=== PATIENT | female | born 1985 | race Asian ===

== ENCOUNTER 2023-10-06 13:21 | Inpatient (IN) | payer MEDICAID ==
[~2023-10-06] VITALS: Ht 175.3 cm; Wt 58.1 kg
[2023-10-06 13:43] VITALS: BP_SYST 123; PULSE 98; RESP 18; TEMP 97.6; O2SAT 100
[2023-10-06] MEDS: KETOROLAC TROMETHAMINE 60 MG/2 ML VIAL IM ONE (14:28)
[2023-10-06 15:28] LABS: BASOPHILS # (AUTO) 0.1 K/uL (0.0-0.2); BASOPHILS % (AUTO) 1.1 % (0.0-2.0); EOSINOPHILS # (AUTO) 0.3 K/uL (0.0-0.4); EOSINOPHILS % (AUTO) 3.9 % (0.0-4.0); HEMATOCRIT 42.2 % (36-48); HEMOGLOBIN 13.9 g/dL (12.0-16.0); LYMPHOCYTES # (AUTO) 1.6 K/uL (1.0-5.5); LYMPHOCYTES % (AUTO) 18.9 % (20.5-51.5); MEAN CORPUSCULAR HEMOGLOBIN 29 pg (27-31); MEAN CORPUSCULAR HGB CONC 33 % (32-36); MEAN CORPUSCULAR VOLUME 89 fL (79.0-98.0); MONOCYTES # (AUTO) 0.7 K/uL (0.0-1.0); MONOCYTES % (AUTO) 7.6 % (1.7-9.3); NEUTROPHILS # (AUTO) 5.9 K/uL (1.8-7.7); NEUTROPHILS % (AUTO) 68.5 % (40.0-70.0); PLATELET COUNT (AUTO) 372 K/uL (130-430); RED BLOOD CELL COUNT(AUTO) 4.74 MIL/uL (4.2-6.2); WHITE BLOOD COUNT (AUTO) 8.7 K/uL (4.8-10.8)
[2023-10-06 15:57] LABS: CREATININE 0.84 mg/dL (0.55-1.30); POTASSIUM 3.9 mmol/L (3.5-5.1)
[2023-10-06] MEDS: fentaNYL CITRATE/PF 100 MCG/2 ML AMP IM ONE (16:40)
[2023-10-06] MEDS ORDERED: cefTRIAXone 1 GM VIAL ONE (17:06)
[2023-10-06] MEDS: NACL 0.9% 1,000 ML IV ONE (17:09)
[2023-10-06] MEDS: cefTRIAXone 1 GM in D5W 50 ML IV ONE (17:13)
[2023-10-06] MEDS: D5/0.45 NS 1,000 ML IV SCH (19:46)
[2023-10-06] MEDS: MORPHINE 4 MG INJ. 4 MG/ML VIAL IVP PRN (19:48)
[2023-10-06 20:41] VITALS: BP_SYST 132; PULSE 83; RESP 18; TEMP 97.7
[2023-10-06 21:12] VITALS: BP_SYST 132; PULSE 83; RESP 18; TEMP 97.7; O2SAT 99
[2023-10-06 21:15] VITALS: O2SAT 99
[2023-10-06] MEDS: CLINDAMYCIN 300 MG/50 ML D5W 50 ML IV SCH (22:57)
[2023-10-06] MEDS ORDERED: ONDANSETRON HCL 4 MG/2 ML VIAL ONE (23:00)
[2023-10-06] MEDS ORDERED: BUPIVACAINE /PF 0.25% 30 ML VIAL INJ ONE (23:00)
[2023-10-06] MEDS ORDERED: LIDOCAINE MPF 2% 5mL VIAL INJ ONE (23:00)
[2023-10-06] MEDS ORDERED: PROPOFOL 200MG/ 20ML VIAL (DIPRIVAN) IV ONE (23:00)
[2023-10-06] MEDS ORDERED: SEVOFLURANE 15 MIN GAS INH ONE (23:00)
[2023-10-06] MEDS ORDERED: MIDAZOLAM HCL 2 MG/2 ML VIAL (VERSED) ONE (23:00)
[2023-10-06] MEDS ORDERED: KETOROLAC TROMETHAMINE 30 MG VIAL ONE (23:00)
[2023-10-06] MEDS ORDERED: fentaNYL CITRATE/PF 100 MCG/2 ML AMP ONE (23:00)
[2023-10-06] MEDS ORDERED: LR 1,000 ML IV.SOLN IV ONE (23:00)
[2023-10-06] MEDS ORDERED: METOCLOPRAMIDE HCL 10 MG/2 ML VIAL ONE (23:00)
[2023-10-06] MEDS ORDERED: NS IRRIG SOLN 1000 ML IR ONE (23:00)
[2023-10-06 23:15] LABS: BILIRUBIN,URINE NEGATIVE (NEGATIVE); BLOOD, URINE NEGATIVE (NEGATIVE); CLARITY/URINE CLEAR (CLEAR); COLOR,URINE YELLOW (YELLOW); GLUCOSE,URINE NEGATIVE (NEGATIVE); KETONES,URINE NEGATIVE (NEGATIVE); LEUKOCYTE ESTERASE ,URINE NEGATIVE (NEGATIVE); NITRITE, URINE NEGATIVE (NEGATIVE); PROTEIN URINE NEGATIVE (NEGATIVE); UROBILINOGEN,URINE 0.2 (0.2-1.0)
[2023-10-06] MEDS: LR 1,000 ML IV SCH (23:45)
[2023-10-06] MEDS ORDERED: KETOROLAC TROMETHAMINE 30 MG VIAL IVP PRN (23:45)
[2023-10-07 04:00] VITALS: BP_SYST 110; PULSE 76; RESP 18; TEMP 97.7; O2SAT 99
[2023-10-07 05:56] VITALS: BP_SYST 110; PULSE 76; O2SAT 99
[2023-10-07] MEDS: MORPHINE 2 MG/ML INJ. SYRINGE IVP PRN (06:20)
[2023-10-07 08:00] VITALS: BP_SYST 103; PULSE 75; RESP 16; TEMP 97.5; O2SAT 100; O2SAT 99
[2023-10-07 08:20] LABS: ALBUMIN 2.9 g/dL (3.4-4.8); CALCIUM 8.7 mg/dL (8.4-11.0); CREATININE 0.85 mg/dL (0.55-1.30); POTASSIUM 3.9 mmol/L (3.5-5.1); TOTAL BILIRUBIN 0.7 mg/dL (0.0-1.0); TOTAL PROTEIN, SERUM 6.4 g/dL (6.4-8.3)
[2023-10-07] MEDS ORDERED: NALOXONE HCL 0.4 MG/ML AMP (NARCAN) IVP PRN (10:00)
[2023-10-07] MEDS ORDERED: HYDROcodone/ACETAMIN 5-325 MG TAB (NORCO/ VICODIN) PO PRN (10:00)
[2023-10-07] MEDS: cefTRIAXone 1 GM IVPB PREMIX 50 ML IV SCH (10:33)
[2023-10-07] MEDS: ONDANSETRON HCL 4 MG/2 ML VIAL IVP PRN (13:36)
[2023-10-07 14:41] VITALS: BP_SYST 103; PULSE 75; RESP 16; TEMP 98; O2SAT 99
[2023-10-07 16:00] VITALS: BP_SYST 116; PULSE 64; RESP 16; TEMP 98.2; O2SAT 100
[2023-10-07 20:30] VITALS: BP_SYST 118; PULSE 72; RESP 16; TEMP 97.5; O2SAT 99
[2023-10-08 00:30] VITALS: BP_SYST 105; PULSE 77; RESP 16; TEMP 97.5; O2SAT 100
[2023-10-08 05:58] LABS: BASOPHILS # (AUTO) 0.1 K/uL (0.0-0.2); BASOPHILS % (AUTO) 1.1 % (0.0-2.0); EOSINOPHILS # (AUTO) 0.7 K/uL (0.0-0.4); EOSINOPHILS % (AUTO) 10.3 % (0.0-4.0); HEMATOCRIT 33.6 % (36-48); HEMOGLOBIN 11.3 g/dL (12.0-16.0); LYMPHOCYTES # (AUTO) 1.8 K/uL (1.0-5.5); MEAN CORPUSCULAR HEMOGLOBIN 30 pg (27-31); MEAN CORPUSCULAR HGB CONC 34 % (32-36); MEAN CORPUSCULAR VOLUME 90 fL (79.0-98.0); MONOCYTES # (AUTO) 0.9 K/uL (0.0-1.0); MONOCYTES % (AUTO) 12.5 % (1.7-9.3); NEUTROPHILS # (AUTO) 3.5 K/uL (1.8-7.7); NEUTROPHILS % (AUTO) 50.1 % (40.0-70.0); PLATELET COUNT (AUTO) 299 K/uL (130-430); RED BLOOD CELL COUNT(AUTO) 3.75 MIL/uL (4.2-6.2); WHITE BLOOD COUNT (AUTO) 6.9 K/uL (4.8-10.8)
[2023-10-08 06:37] LABS: CALCIUM 8.7 mg/dL (8.4-11.0); CREATININE 0.87 mg/dL (0.55-1.30)
[2023-10-08 08:00] VITALS: BP_SYST 102; PULSE 65; RESP 14; TEMP 98.1; O2SAT 100
[2023-10-08 12:00] VITALS: BP_SYST 120; PULSE 77; RESP 16; TEMP 97.7; O2SAT 100
[2023-10-08] MEDS: MORPHINE 2 MG/ML INJ. SYRINGE IVP PRN (13:20)
[2023-10-08 16:00] VITALS: BP_SYST 127; PULSE 83; RESP 16; TEMP 98.2; O2SAT 99
[2023-10-08 20:30] VITALS: BP_SYST 118; PULSE 78; RESP 16; TEMP 98.2; O2SAT 100
[2023-10-09] VITALS (8 sets, daily range): BP systolic 104–134; PULSE 67–92; RESP 16–19; TEMP 97.2–98.8; O2SAT 99–100
[2023-10-10] VITALS (8 sets, daily range): BP systolic 98–115; PULSE 83–98; RESP 14–19; TEMP 97.5–99; O2SAT 98–100
[2023-10-10 06:49] LABS: BASOPHILS # (AUTO) 0.1 K/uL (0.0-0.2); EOSINOPHILS # (AUTO) 0.7 K/uL (0.0-0.4); EOSINOPHILS % (AUTO) 9.4 % (0.0-4.0); HEMATOCRIT 42.1 % (36-48); HEMOGLOBIN 13.9 g/dL (12.0-16.0); LYMPHOCYTES # (AUTO) 1.7 K/uL (1.0-5.5); LYMPHOCYTES % (AUTO) 22.3 % (20.5-51.5); MEAN CORPUSCULAR HEMOGLOBIN 30 pg (27-31); MEAN CORPUSCULAR HGB CONC 33 % (32-36); MEAN CORPUSCULAR VOLUME 89 fL (79.0-98.0); MONOCYTES # (AUTO) 0.8 K/uL (0.0-1.0); MONOCYTES % (AUTO) 10.1 % (1.7-9.3); NEUTROPHILS # (AUTO) 4.3 K/uL (1.8-7.7); NEUTROPHILS % (AUTO) 57.2 % (40.0-70.0); PLATELET COUNT (AUTO) 358 K/uL (130-430); RED BLOOD CELL COUNT(AUTO) 4.71 MIL/uL (4.2-6.2); WHITE BLOOD COUNT (AUTO) 7.5 K/uL (4.8-10.8)
[2023-10-10 06:59] LABS: CALCIUM 10.2 mg/dL (8.4-11.0); CREATININE 0.74 mg/dL (0.55-1.30); POTASSIUM 3.8 mmol/L (3.5-5.1)
[2023-10-11] VITALS: BP_SYST 115; PULSE 96; RESP 16; TEMP 98.6; O2SAT 98
[2023-10-11] MEDS: DIPHENHYDRAMINE HCL 50 MG CAPSULE PO PRN (00:26)
[2023-10-11 05:38] LABS: BASOPHILS # (AUTO) 0.1 K/uL (0.0-0.2); BASOPHILS % (AUTO) 1.1 % (0.0-2.0); EOSINOPHILS # (AUTO) 0.8 K/uL (0.0-0.4); EOSINOPHILS % (AUTO) 9.5 % (0.0-4.0); HEMATOCRIT 39.6 % (36-48); HEMOGLOBIN 13.2 g/dL (12.0-16.0); LYMPHOCYTES # (AUTO) 2.3 K/uL (1.0-5.5); LYMPHOCYTES % (AUTO) 28.8 % (20.5-51.5); MEAN CORPUSCULAR HEMOGLOBIN 30 pg (27-31); MEAN CORPUSCULAR HGB CONC 33 % (32-36); MEAN CORPUSCULAR VOLUME 89 fL (79.0-98.0); MONOCYTES % (AUTO) 12.4 % (1.7-9.3); NEUTROPHILS # (AUTO) 3.9 K/uL (1.8-7.7); NEUTROPHILS % (AUTO) 48.2 % (40.0-70.0); PLATELET COUNT (AUTO) 344 K/uL (130-430); RED BLOOD CELL COUNT(AUTO) 4.44 MIL/uL (4.2-6.2); WHITE BLOOD COUNT (AUTO) 8.1 K/uL (4.8-10.8)
[2023-10-11 06:11] LABS: CALCIUM 9.9 mg/dL (8.4-11.0); CREATININE 0.76 mg/dL (0.55-1.30); POTASSIUM 4.1 mmol/L (3.5-5.1)
[2023-10-11 08:00] VITALS: BP_SYST 109; PULSE 97; RESP 18; TEMP 98.1; O2SAT 97
[2023-10-11 08:48] VITALS: O2SAT 97
[2023-10-11 11:25] VITALS: BP_SYST 114; PULSE 78; RESP 17; TEMP 97.9; O2SAT 100
[2023-10-11] MEDS ORDERED: ROCI2 IV (14:06)
[2023-10-11] MEDS ORDERED: CLIN-142 PO (14:08)
[2023-10-11 16:00] VITALS: BP_SYST 125; PULSE 85; RESP 17; TEMP 98; O2SAT 100
[2023-10-11 17:14] VITALS: BP_SYST 114; PULSE 78; RESP 17; TEMP 97.9; O2SAT 100
== END 2023-10-11 19:34 | disposition home health service (06) | DRG 363 ==
LOC: SED 13:21 → SMU 17:50
PROVIDERS: ADMIT Internal Medicine; ATTEND Internal Medicine
PROC: 0HBT0ZX Excision of Right Breast, Open Approach, Diagnostic (ICD-10-PCS; 2023-10-06)
PROC: 0H9T0ZZ Drainage of Right Breast, Open Approach (ICD-10-PCS; principal; 2023-10-06 23:34)
PROC: 05HY33Z Insertion of Infusion Device into Upper Vein, Percutaneous Approach (ICD-10-PCS; 2023-10-10)
DX: N61.1 Abscess of the breast and nipple (principal); E43 Unspecified severe protein-calorie malnutrition; Z79.899 Other long term (current) drug therapy; Z88.2 Allergy status to sulfonamides; Z88.9 Allergy status to unspecified drugs, medicaments and biological substances; Z68.1 Body mass index [BMI] 19.9 or less, adult
CPT/HCPCS: 36415; 76642; 80048; 80053; 81001; 81003; 83605; 85025; 87040; 87070; 87075; 87081; 87101; 88304; 88305; 99285; J0696; J1885; J2001; J2270; J2405; J2704; J2765; J3010; J3465; J3490; J7060; J7120; Q0163

== ENCOUNTER 2024-02-21 20:04 | Inpatient (IN) | payer MEDICAID ==
[~2024-02-21] VITALS: Ht 175.3 cm; Wt 60.8 kg
[~2024-02-21 20:04] MED LIST: CLIN-142 PO; ROCI2 IV
[2024-02-21 20:23] VITALS: PULSE 101; RESP 18; TEMP 99.5; O2SAT 99
[2024-02-21 21:10] LABS: BILIRUBIN,URINE NEGATIVE (NEGATIVE); BLOOD, URINE NEGATIVE (NEGATIVE); CLARITY/URINE CLEAR (CLEAR); COLOR,URINE YELLOW (YELLOW); GLUCOSE,URINE NEGATIVE (NEGATIVE); KETONES,URINE TRACE (NEGATIVE); LEUKOCYTE ESTERASE ,URINE NEGATIVE (NEGATIVE); NITRITE, URINE NEGATIVE (NEGATIVE); PH,URINE 6.5 (5.0-8.0); PROTEIN URINE NEGATIVE (NEGATIVE); UROBILINOGEN,URINE 0.2 (0.2-1.0)
[2024-02-21 21:54] LABS: BASOPHILS # (AUTO) 0.3 K/uL (0.0-0.2); BASOPHILS % (AUTO) 2.6 % (0.0-2.0); EOSINOPHILS # (AUTO) 0.6 K/uL (0.0-0.4); EOSINOPHILS % (AUTO) 4.7 % (0.0-4.0); HEMATOCRIT 31.6 % (36-48); HEMOGLOBIN 10.3 g/dL (12.0-16.0); LYMPHOCYTES # (AUTO) 2.5 K/uL (1.0-5.5); LYMPHOCYTES % (AUTO) 21.1 % (20.5-51.5); MEAN CORPUSCULAR HEMOGLOBIN 28 pg (27-31); MEAN CORPUSCULAR HGB CONC 33 % (32-36); MEAN CORPUSCULAR VOLUME 85 fL (79.0-98.0); MONOCYTES # (AUTO) 1.1 K/uL (0.0-1.0); MONOCYTES % (AUTO) 9.4 % (1.7-9.3); NEUTROPHILS # (AUTO) 7.3 K/uL (1.8-7.7); NEUTROPHILS % (AUTO) 62.2 % (40.0-70.0); PLATELET COUNT (AUTO) 579 K/uL (130-430); RED BLOOD CELL COUNT(AUTO) 3.73 MIL/uL (4.2-6.2); WHITE BLOOD COUNT (AUTO) 11.8 K/uL (4.8-10.8)
[2024-02-21] MEDS: KETOROLAC TROMETHAMINE 30 MG VIAL IVP ONE (21:58)
[2024-02-21] MEDS: NACL 0.9% 1,000 ML IV ONE (21:58)
[2024-02-21 22:08] LABS: CALCIUM 9.2 mg/dL (8.4-11.0); CREATININE 1.12 mg/dL (0.55-1.30); POTASSIUM 3.9 mmol/L (3.5-5.1); TOTAL BILIRUBIN 0.1 mg/dL (0.0-1.0); TOTAL PROTEIN, SERUM 7.6 g/dL (6.4-8.3)
[2024-02-21 22:10] LABS: SERUM HCG (QUALITATIVE) NEGATIVE (NEGATIVE)
[2024-02-21 22:20] LABS: BILIRUBIN,DIRECT 0.1 mg/dL (0.0-0.3)
[2024-02-21] MEDS: MORPHINE 4 MG INJ. 4 MG/ML VIAL IVP ONE (22:48)
[2024-02-21] MEDS: ONDANSETRON HCL 4 MG/2 ML VIAL IVP ONE (22:48)
[2024-02-22] MEDS: methocarbamoL 500 MG TABLET PO ONE (00:47)
[2024-02-22] MEDS: MORPHINE 4 MG INJ. 4 MG/ML VIAL IVP ONE ×2 (03:24→10:27)
[2024-02-22] MEDS: ACETAMINOPHEN 500 MG TABLET PO ONE (05:00)
[2024-02-22] MEDS: HYDROmorphone 1 MG/ML INJ. CARTRIDGE IVP ONE (05:00)
[2024-02-22] MEDS ORDERED: METR-154 PO (07:42)
[2024-02-22] MEDS ORDERED: ACETAMINOPHEN 325 MG TABLET PO PRN (09:00)
[2024-02-22] MEDS: DIPHENHYDRAMINE INJ 50 MG/ML VIAL IVP ONE (09:13)
[2024-02-22] MEDS: MORPHINE 2 MG/ML INJ. SYRINGE IVP PRN (10:26)
[2024-02-22] MEDS: MORPHINE 4 MG INJ. 4 MG/ML VIAL IVP PRN (15:46)
[2024-02-22 20:51] VITALS: BP_SYST 118; PULSE 97; RESP 18; TEMP 99.1
[2024-02-22 21:47] VITALS: O2SAT 99
[2024-02-23] MEDS: ZOLPIDEM TARTRATE 5 MG TABLET PO PRN (00:11)
[2024-02-23 00:26] VITALS: BP_SYST 143; PULSE 100; RESP 20; TEMP 96.4; O2SAT 99
[2024-02-23 04:42] LABS: BASOPHILS # (AUTO) 0.1 K/uL (0.0-0.2); BASOPHILS % (AUTO) 0.7 % (0.0-2.0); EOSINOPHILS # (AUTO) 0.6 K/uL (0.0-0.4); EOSINOPHILS % (AUTO) 4.8 % (0.0-4.0); HEMATOCRIT 34.3 % (36-48); HEMOGLOBIN 10.9 g/dL (12.0-16.0); LYMPHOCYTES # (AUTO) 2.4 K/uL (1.0-5.5); LYMPHOCYTES % (AUTO) 20.4 % (20.5-51.5); MEAN CORPUSCULAR HEMOGLOBIN 27 pg (27-31); MEAN CORPUSCULAR HGB CONC 32 % (32-36); MEAN CORPUSCULAR VOLUME 85 fL (79.0-98.0); MONOCYTES % (AUTO) 8.8 % (1.7-9.3); NEUTROPHILS # (AUTO) 7.6 K/uL (1.8-7.7); NEUTROPHILS % (AUTO) 65.3 % (40.0-70.0); PLATELET COUNT (AUTO) 613 K/uL (130-430); RED BLOOD CELL COUNT(AUTO) 4.04 MIL/uL (4.2-6.2); RED CELL DISTRIBUTION WIDTH 14.8 % (9.0-15.0); WHITE BLOOD COUNT (AUTO) 11.7 K/uL (4.8-10.8)
[2024-02-23 05:48] LABS: ALBUMIN 3.2 g/dL (3.4-4.8); CALCIUM 9.9 mg/dL (8.4-11.0); CREATININE 0.7 mg/dL (0.55-1.30); POTASSIUM 3.9 mmol/L (3.5-5.1); TOTAL BILIRUBIN 0.3 mg/dL (0.0-1.0); TOTAL PROTEIN, SERUM 8.2 g/dL (6.4-8.3)
[2024-02-23 09:35] LABS: THYROID STIMULATING HORMONE 1.05 uIu/mL (0.36-3.74)
[2024-02-23 09:44] LABS: INR 0.9 (0.8-1.2); PROTHROMBIN TIME 9.9 SECS (9.5-12.5)
[2024-02-23 10:00] VITALS: BP_SYST 110; PULSE 78; RESP 16; TEMP 110; O2SAT 99
[2024-02-23] MEDS ORDERED: HYDROmorphone 1 MG/ML INJ. CARTRIDGE IVP PRN (11:15)
[2024-02-23 11:19] VITALS: BP_SYST 135; PULSE 90; RESP 17; TEMP 97.3; O2SAT 99
[2024-02-23] MEDS: OXYCODONE/ACETAMINOPHEN 5-325 TABLET PO PRN (15:02)
[2024-02-23 16:07] VITALS: BP_SYST 115; PULSE 96; RESP 18; TEMP 97; O2SAT 100
[2024-02-23] MEDS: ONDANSETRON HCL 4 MG/2 ML VIAL IVP PRN (17:18)
[2024-02-23] MEDS: MORPHINE 4 MG INJ. 4 MG/ML VIAL IVP PRN (17:19)
[2024-02-23 20:00] VITALS: BP_SYST 115; PULSE 94; RESP 16; TEMP 97.3; O2SAT 100
[2024-02-24] VITALS: BP_SYST 117; PULSE 91; RESP 16; TEMP 97.8; O2SAT 100
[2024-02-24 04:56] LABS: BASOPHILS # (AUTO) 0.1 K/uL (0.0-0.2); BASOPHILS % (AUTO) 0.4 % (0.0-2.0); EOSINOPHILS # (AUTO) 0.4 K/uL (0.0-0.4); HEMOGLOBIN 11.7 g/dL (12.0-16.0); LYMPHOCYTES # (AUTO) 2.1 K/uL (1.0-5.5); LYMPHOCYTES % (AUTO) 15.3 % (20.5-51.5); MEAN CORPUSCULAR HEMOGLOBIN 27 pg (27-31); MEAN CORPUSCULAR HGB CONC 33 % (32-36); MEAN CORPUSCULAR VOLUME 85 fL (79.0-98.0); MONOCYTES # (AUTO) 1.3 K/uL (0.0-1.0); MONOCYTES % (AUTO) 9.4 % (1.7-9.3); NEUTROPHILS % (AUTO) 71.9 % (40.0-70.0); PLATELET COUNT (AUTO) 619 K/uL (130-430); RED BLOOD CELL COUNT(AUTO) 4.26 MIL/uL (4.2-6.2); RED CELL DISTRIBUTION WIDTH 14.7 % (9.0-15.0); WHITE BLOOD COUNT (AUTO) 13.9 K/uL (4.8-10.8)
[2024-02-24] MEDS: ACETAMINOPHEN 325 MG TABLET PO PRN (05:22)
[2024-02-24 05:45] LABS: CALCIUM 10.2 mg/dL (8.4-11.0); CREATININE 0.83 mg/dL (0.55-1.30); POTASSIUM 3.6 mmol/L (3.5-5.1)
[2024-02-24] MEDS: POLYETHYLENE GLYCOL 3350, 17 GM/ POWD.PACK PO SCH (09:36)
[2024-02-24] MEDS: ONDANSETRON 4 MG ODT TAB PO PRN (10:44)
[2024-02-24] MEDS ORDERED: DOCU-144 PO (11:01)
[2024-02-24] MEDS ORDERED: ONDA-8 TL (11:01)
[2024-02-24] MEDS ORDERED: OXYC-128 PO (11:01)
[2024-02-24 12:29] VITALS: BP_SYST 131; PULSE 100; RESP 18; TEMP 98.1; O2SAT 100
[2024-02-24 12:52] VITALS: BP_SYST 123; PULSE 90; RESP 17; TEMP 98.6; O2SAT 100
== END 2024-02-24 13:00 | disposition home or self-care (01) | DRG 532 ==
LOC: SED 20:04 → SMU 02-22 08:53
PROVIDERS: ADMIT Internal Medicine; ATTEND Internal Medicine
DX: N83.201 Unspecified ovarian cyst, right side (principal); E44.1 Mild protein-calorie malnutrition; E87.1 Hypo-osmolality and hyponatremia; N85.8 Other specified noninflammatory disorders of uterus; J45.909 Unspecified asthma, uncomplicated; Z79.899 Other long term (current) drug therapy; Z88.6 Allergy status to analgesic agent; Z88.2 Allergy status to sulfonamides; Z88.8 Allergy status to other drugs, medicaments and biological substances; D53.9 Nutritional anemia, unspecified; Z68.1 Body mass index [BMI] 19.9 or less, adult; D25.9 Leiomyoma of uterus, unspecified
CPT/HCPCS: 36415; 71045; 76700; 76830; 80048; 80053; 80076; 81001; 81003; 83605; 83690; 84443; 84703; 85025; 85610; 85651; 85730; 99285; J1200; J1885; J2270; J2405; Q0162